=== PATIENT | female | born 1960 | race Caucasian/White ===

== ENCOUNTER 2017-06-05 12:04 | Observation (INO) | payer MEDICAID ==
[2017-06-05] MEDS ORDERED: ONDANSETRON HCL 4 MG/2 ML VIAL ONE (12:48)
[2017-06-05 13:25] LABS: ALBUMIN 4.6 g/dL (3.5-5.0); ALKALINE PHOSPHATASE 88 U/L (38-126); ALT 77 U/L (9-52); AST 132 U/L (14-36); BILIRUBIN, DIRECT 0.3 mg/dL (0.0-0.4); BILIRUBIN, TOTAL 0.6 mg/dL (0.2-1.3); BLOOD UREA NITROGEN 7 mg/dL (7-17); CALCIUM 10.1 mg/dL (8.4-10.2); CHLORIDE 102 mmol/L (98-107); EST GLOMERULAR FILTRATION RATE > 60 mL/min; GLUCOSE 74 mg/dL (70-100); LIPASE 185 U/L (23-300); POTASSIUM 4.1 mmol/L (3.5-5.1); SODIUM 140 mmol/L (137-145); TOTAL PROTEIN 7.4 g/dL (6.3-8.2)
[2017-06-05 13:31] LABS: RED BLOOD COUNT 3.79 X 10^6uL (4.20-6.10)
[2017-06-05 13:32] LABS: BASOPHILS 0.7 % (0.0-2.0); EOSINOPHILS 1.4 % (0.0-6.0); EOSINOPHILS# 0.1 X 10^3uL (0.0-0.4); HEMATOCRIT 42.7 % (36.0-48.0); HEMOGLOBIN 14.3 g/dL (12.0-16.0); LYMPHOCYTES 31.7 % (20.0-40.0); LYMPHOCYTES# 1.3 X 10^3uL (0.8-3.8); MEAN CORPUS. HGB CONCENTRATION 33.6 g/dL (32.0-36.0); MEAN CORPUSCULAR HEMOGLOBIN 37.9 pg (29.0-35.0); MEAN PLATELET VOLUME 7.8 fL (7.4-10.4); MONOCYTES# 0.4 X 10^3uL (0.2-1.0); NEUTROPHILS 55.2 % (54.0-75.0); NEUTROPHILS# 2.2 X 10^3uL (2.6-6.7); PLATELET COUNT 186 X 10^3uL (130-440); RED CELL DISTRIBUTION WIDTH 10.6 % (11.5-14.5)
--- NOTE | 2017-06-05 14:17 | CT REPORT ---
HISTORY: Metastatic breast carcinoma. COMPARISON: 01/24/2017. TECHNIQUE: This examination was performed using automated exposure control, adjustment of mA or kV according to patient size, and/or use of iterative reconstruction technique. Multiple contiguous axial images were obtained from the lung bases through the pubic symphysis following administration of intravenous con trast. 100cc Isovue 370 contrast. FINDINGS: Clear lung bases. Normal heart size. Mild intrahepatic ductal dilatation. This appears similar to the previous study. Subtle poorly define d hypodensities within the posterior segment right lobe of the liver appear grossly stable. No new or enlarging hepatic lesions identified. Normal enhancement hepatic veins and portal veins. Surgical clips gallbladder fossa compatible with previous cholecystectomy. No common bile duct dilata tion or common bile duct stone. Normal spleen. No adrenal masses. No pancreatic mass. Mildly prominent pancreatic duct. Normal renal size and morphology bilaterally. Mildly prominent bilateral renal pelvis unchanged since previous study. No mass, stone or hydronephrosis identified. Mild atherosclerotic changes of aorta and iliac vessels without focal aneurysm. Unremarkable bladder. Uterus is anteverted and slightly to left of midline. There is a possible uteri ne leiomyoma present. This appears unchanged since the previous study. There appears to be trace free fluid within the left adnexal region. Otherwise no discrete adnexal masses noted. Unremarkable stomach, small bowel and colon. No small bowel or colonic obstruction identified. No retroperitoneal lymphadenopathy. No ascites. Evidence for diffuse osseous metastatic disease with involvement of the lower thoracic spine, lumbar spine, pelvis and proximal femurs. This appears to be grossly stable as compared with the previous examination. IMPRESSION: Stable diffuse osseous metastatic disease. Stable mild central intrahepatic ductal dilatation. Stable poorly defined hypodense lesion posterior segment right lobe of the liver. Stable left adnexal mass probably representing pedunculated leiomyoma. Status post cholecystectomy. Final Electronic Signature: This report was electronically signed by Harinder Chambers MD, FACR on 2:15 PM. [facility] / / [facility] [phone]
[2017-06-05] MEDS ORDERED: MORPHINE SULFATE 4 MG/ML SYR ONE (14:30)
[2017-06-05] MEDS ORDERED: HOME MEDICATION LIST NEEDED 1 EA EACH MC ONE (14:51)
--- NOTE | 2017-06-05 15:23 | ER NURSING DOCUMENTATION ---
Nurse's Notes [facility] Name:Imelda Vu Age:56 yrs Sex:Female :1960 Arrival Date:06/05/2017 Time:12:04 Bed3 Private MD:Zack Cuellar Diagnosis:Abdominal Pain, Right Upper Quadrant Presentation: 06/05 12:10 Acuity: LISA 3 tg 12:13 Presenting complaint: Patient states: Right upper quadrant abdominal pain. Transition lp of care: Home. 12:13 Method Of Arrival: Private Vehicle lp Triage Assessment: 12:16 General: Appears uncomfortable, Behavior is. Pain: Complains of pain in right upper lp quadrant. EENT: No deficits noted. Neuro: No deficits noted. Cardiovascular: Heart tones S1 S2. Respiratory: Breath sounds are clear bilaterally. GI: Bowel sounds present X 4 quads. : No deficits noted. Historical: - Allergies: Compazine; - Home Meds: 1. Albuterol Inhl 2. Arimidex 1 mg oral tab 1 tab once daily 3. Nexium 40 mg oral cpDR 1 cap once daily 4. Synthroid 75 mcg oral tab 1 tab once daily 5. Kenalog Topical 6. zoledronic acid 4mg IV 4mg every 3 months - PMHx: breast Cancer; - PSHx: CHOLECYSECTOMY; MASTECTOMY; - Tetanus: < 10 years. - Ebola Screening: : Patient negative for fever greater than or equal to 101.5 degrees Fahrenheit, and additional compatible Ebola Virus Disease symptoms. Patient denies exposure to infectious person. Patient denies travel to an Ebola-affected area in the 21 days before illness onset. . - Immunization history: Pneumococcal vaccine is up to date, Flu Vaccine < 1 year. - Social history: Smoking status: Patient uses tobacco products, current every day smoker. Patient uses alcohol occasionally. Screenin:20 Infectious Disease Risk None. Abuse screen: Denies threats or abuse. Denies injuries lp from another. Nutritional screening: No deficits noted. Assessment: 12:20 GI: Abdomen is tender to palpation in right upper quadrant. lp Vital Signs: 12:19 BP 103 / 74; Pulse 76; Resp 16; Temp 97.0(TE); Pulse Ox 96% on R/A; Weight 50.8 kg; lp Height 5 ft. 2 in. (157.48 cm); Pain 8/10; 13:15 BP 119 / 68; lp 15:20 BP 97 / 60; Pulse 78; Resp 16; Pulse Ox 92% on 2 lpm NC; lp 12:19 Body Mass Index 20.48 (50.80 kg, 157.48 cm) lp ED Course: 12:08 Patient arrived in ED. jl 12:08 Zack Cuellar is Private Physician. jl 12:10 Triage completed. tg 12:13 Fabiana Benitez, RN is Primary Nurse. lp 12:[address] Garcia notified. lp 12:20 Valuables Remains with patient Patient has correct armband on for positive lp identification. Bed in low position. Call light in reach. Side rails up X 1. 12:32 Rufino Garcia MD is Attending Physician. 12:52 Oxygen Oxygen administration via nasal cannula @ 2L/min. tg 14:50 Piedad Mo MD is Admitting Physician. Administered Medications: 12:37 Drug: Zofran 4 mg; Route: IVP; Infused Over: 2 mins; Site: left antecubital; lp 13:07 Follow up: Response: Nausea is decreased lp 12:37 Drug: HYDROmorphone 1 mg; Route: IVP; Site: left antecubital; lp 13:06 Follow up: Response: Pain is decreased lp 13:26 Drug: Dilaudid 0.5 mg; Route: IVP; Site: left antecubital; lp 14:25 Follow up: Response: Pain is decreased lp 13:26 CANCELLED (Other Intervention Used): HYDROmorphone 0.5 mg IVP once lp 14:25 Drug: morphine 4 mg; Route: IVP; Site: left antecubital; lp 15:14 Follow up: Response: No adverse reaction; Pain is decreased lp Outcome: 14:50 Decision to Admit by Provider. jm 15:20 Admitted to Med/surg accompanied by nurse. lp 15:20 Condition: good 15:20 Report given to Arielle OLIVARES 15:20 Instructed on need to admit 15:22 Patient left the ED. lp Signatures: Kendall Boucher, RN MARSHALL Fabiana Benitez, RN RN Rufino Campbell MD MD jm Norman, David dnn Hofsess, Rachel rh Lietz, Jeff jl
--- NOTE | 2017-06-05 15:23 | ER PHYSICIAN DOCUMENTATION ---
Physician Documentation [facility] Name:Imelda Vu Age:56 yrs Sex:Female :1960 Arrival Date:06/05/2017 Time:12:04 Bed3 Private MD:Zack Cuellar ED, John Disposition: 06/05/17 14:50 Admit ordered for MoPiedad godoy. Preliminary diagnosis is Abdominal Pain, Right Upper Quadrant. - Bed requested for Medical/Surgical. - Condition is Fair. - Problem is chronic. - Symptoms are unchanged. 23 HR OBS Yes HPI: 06/05 14:10 This 56 yrs old Female presents to ER via Private Vehicle with complaints of jm Abdominal Pain. 14:10 The patient presents with abdominal pain in the right upper quadrant. Onset: The jm symptoms/episode began/occurred 2 day(s) ago. The symptoms do not radiate. Associated signs and symptoms: Pertinent positives: nausea, vomiting. The symptoms are described as crampy, intermittent, waxing/waning. Modifying factors: the symptoms are aggravated by nothing. Severity of pain: in the emergency department the pain is unchanged. The patient has experienced similar episodes in the past. The patient has not recently seen a physician. 56 yo F w hx of cholecystectomy a few months ago here w RUQ pain that has been chronic but lately, more painful. . Historical: - Allergies: Compazine; - Home Meds: 1. Albuterol Inhl 2. Arimidex 1 mg oral tab 1 tab once daily 3. Nexium 40 mg oral cpDR 1 cap once daily 4. Synthroid 75 mcg oral tab 1 tab once daily 5. Kenalog Topical 6. zoledronic acid 4mg IV 4mg every 3 months - PMHx: breast Cancer; - PSHx: CHOLECYSECTOMY; MASTECTOMY; - Tetanus: < 10 years. - Ebola Screening: : Patient negative for fever greater than or equal to 101.5 degrees Fahrenheit, and additional compatible Ebola Virus Disease symptoms. Patient denies exposure to infectious person. Patient denies travel to an Ebola-affected area in the 21 days before illness onset. . - Immunization history: Pneumococcal vaccine is up to date, Flu Vaccine < 1 year. - Social history: Smoking status: Patient uses tobacco products, current every day smoker. Patient uses alcohol occasionally. ROS: 14:12 Constitutional: Negative for fever. jm 14:12 Cardiovascular: Negative for chest pain. 14:12 Respiratory: Negative for shortness of breath. 14:12 Abdomen/GI: Positive for abdominal pain, nausea, vomiting. Exam: 14:12 Constitutional: The patient appears alert, awake, anxious, obese. 14:12 Eyes: Periorbital structures: appear normal, Conjunctiva: normal. 14:12 ENT: Mouth: is normal, Voice: is normal. 14:12 Neck: Thyroid: appears normal, Trachea: is midline with no obvious abnormalities. 14:12 Cardiovascular: Rate: normal, Rhythm: regular. 14:12 Respiratory: Respirations: normal, Breath sounds: are normal. 14:12 Abdomen/GI: Inspection: abdomen appears normal, Palpation: moderate abdominal tenderness, in the right upper quadrant. 14:12 : CVA tenderness, is absent, Bladder: is normal. 14:12 Neuro: Mentation: is normal, Memory: is normal. 14:12 Psych: Behavior/mood is angry, Affect is calm. Vital Signs: 12:19 BP 103 / 74; Pulse 76; Resp 16; Temp 97.0(TE); Pulse Ox 96% on R/A; Weight 50.8 kg; lp Height 5 ft. 2 in. (157.48 cm); Pain 8/10; 13:15 BP 119 / 68; lp 15:20 BP 97 / 60; Pulse 78; Resp 16; Pulse Ox 92% on 2 lpm NC; lp 12:19 Body Mass Index 20.48 (50.80 kg, 157.48 cm) lp MDM: 12:14 Patient medically screened. 06/05 13:33 Order name: CBC AUTO DIF, MDIF/RMOR IF IND; Complete Time: 13:46 [facility] 06/05 13:44 Order name: BASIC METABOLIC PANEL; Complete Time: 13:46 [facility] 06/05 13:44 Order name: HEPATIC PANEL; Complete Time: 13:46 [facility] 06/05 13:44 Order name: LIPASE; Complete Time: 13:46 [facility] 06/05 17:11 Order name: UA W/ MICRO -CULTURE IF IND; Complete Time: 13:07 [facility] 06/06 06:06 Order name: LACTATE; Complete Time: 13: [facility] 06/06 06:10 Order name: COMPREHENSIVE METABOLIC PANEL; Complete Time: 13: [facility] 06/06 06:17 Order name: CBC WITHOUT A DIFFERENTIAL; Complete Time: 13:07 EDID 06/05 14:18 Order name: CAT SCAN; ABD/PEL W 60773; Complete Time: 14:28 EDID 06/05 12:32 Order name: NPO; Complete Time: 12:38 06/05 12:52 Order name: Oxygen; Complete Time: 12:53 tg Dispensed Medications: 12:37 Drug: Zofran 4 mg; Route: IVP; Infused Over: 2 mins; Site: left antecubital; lp 13:07 Follow up: Response: Nausea is decreased lp 12:37 Drug: HYDROmorphone 1 mg; Route: IVP; Site: left antecubital; lp 13:06 Follow up: Response: Pain is decreased lp 13:26 Drug: Dilaudid 0.5 mg; Route: IVP; Site: left antecubital; lp 14:25 Follow up: Response: Pain is decreased lp 13:26 CANCELLED (Other Intervention Used): HYDROmorphone 0.5 mg IVP once lp 14:25 Drug: morphine 4 mg; Route: IVP; Site: left antecubital; lp 15:14 Follow up: Response: No adverse reaction; Pain is decreased lp Signatures: Kendall Boucher RN RN tg Fabiana Benitez RN RN lp Rufino Garcia MD MD jm Hofsess, Rachel
[2017-06-05] MEDS: NORMAL SALINE 1,000 ML IV SCH (16:08)
[2017-06-05] MEDS ORDERED: KETOROLAC TROMETHAMINE 30 MG/ML VIAL IV PRN (16:44)
[2017-06-05] MEDS ORDERED: MORPHINE SULFATE 2 MG/ML SYR IV PRN (16:45)
[2017-06-05 16:58] LABS: URINE MUCUS NONE SEEN (Up to 25%); URINE RBC NONE SEEN (0-5/hpf); URINE SQUAMOUS EPITHELIAL CELL NONE SEEN (<= 15/hpf); URINE WBC NONE SEEN (0-4/hpf)
[2017-06-05 17:10] LABS: URINE APPEARANCE CLEAR; URINE BACTERIA NONE SEEN (<10/hpf); URINE BILIRUBIN NEGATIVE (NEGATIVE); URINE BLOOD NEGATIVE (NEGATIVE); URINE COLOR YELLOW; URINE GLUCOSE NORMAL (NEGATIVE); URINE KETONE NEGATIVE (NEGATIVE); URINE LEUKOCYTE ESTERASE NEGATIVE (NEGATIVE); URINE NITRITE NEGATIVE (NEGATIVE); URINE PROTEIN NEGATIVE (NEG - TRACE); URINE SPECIFIC GRAVITY < or = 1.005 (0.001-1.035); URINE UROBILINOGEN 0.2mg/dL (Normal) (NEG-1mg/dL)
--- NOTE | 2017-06-05 17:24 | PROGRESS NOTE:General Surgery ---
Assessment and Plan - Date of Encounter Date of Encounter: 06/05/17 (1) Right upper quadrant pain Status: Acute Assessment and plan: Her pain has been present for about 3 weeks he says. It has gradually increased and was too severe today to tolerate any longer. She is also noted reflux with this. She has had very little appetite. She does note that she feels a fast. She has several liver lesions which have been fairly stable over the last few CTs. She denies any vomiting but has been nauseous and has had some dry heaves. She has had some constipation and diarrhea recently as well. I believe the right upper quadrant pain is probably 1 of the liver lesions has become ischemic. She does not have an acute abdomen tonight on examination. She could also have a small bowel obstruction as she has had multiple intra- abdominal surgeries. The plan will be to recheck her labs in the morning and consider an MRCP if her symptoms do not improve. Current Visit: Yes (2) Metastatic breast cancer Status: Acute Assessment and plan: She has been followed on a monthly basis by Dr. Salinas in in [place]. She has been relatively stable despite the fact she has liver metastases and bone metastases. Current Visit: Yes - Time Spent With Patient Total time spent with greater than 50% in coordination of care (as documented) at patient's floor/unit and/or counseling patient: ALEKSEY: Gen Surg PN Subjective Patient reports: afebrile, still having pain, no fever ALEKSEY: Gen Surgery PN Obj Exam - Latest Vital Signs and I&O Latest Vital Signs/I&O: Vital Signs Temp 36.6 C 06/05/17 15:00 Pulse 107 H 06/05/17 15:00 Resp 12 06/05/17 15:43 BP 97/60 06/05/17 15:00 Pulse Ox 96 06/05/17 15:43 Intake & Output 06/04/17 06/05/17 06/05/17 17:59 05:59 17:59 Weight 50.167 kg - Exam General physical exam: moderate pain, chronically ill, cachetic Respiratory exam: normal expansion Abdomen exam: bowel sounds (present), soft, distended - Lab Labs: Laboratory Last Values WBC 4.0 X 10^3uL (3.9-10.7) 06/05/17 12:32 RBC 3.79 X 10^6uL (4.20-6.10) L 06/05/17 12:32 Hgb 14.3 g/dL (12.0-16.0) 06/05/17 12:32 Hct 42.7 % (36.0-48.0) 06/05/17 12:32 MCV 113.0 fL (80.0-100.0) H 06/05/17 12:32 MCH 37.9 pg (29.0-35.0) H 06/05/17 12:32 MCHC 33.6 g/dL (32.0-36.0) 06/05/17 12:32 RDW 10.6 % (11.5-14.5) L D 06/05/17 12:32 Plt Count 186 X 10^3uL (130-440) 06/05/17 12:32 MPV 7.8 fL (7.4-10.4) 06/05/17 12:32 Neutrophils % 55.2 % (54.0-75.0) 06/05/17 12:32 Lymphocytes % 31.7 % (20.0-40.0) 06/05/17 12:32 Eosinophils % 1.4 % (0.0-6.0) 06/05/17 12:32 Basophils % 0.7 % (0.0-2.0) 06/05/17 12:32 Neutrophils # 2.2 X 10^3uL (2.6-6.7) L 06/05/17 12:32 Lymphocytes # 1.3 X 10^3uL (0.8-3.8) 06/05/17 12:32 Monocytes 11.0 % (2.0-10.0) H 06/05/17 12:32 Monocytes # 0.4 X 10^3uL (0.2-1.0) 06/05/17 12:32 Eosinophils # 0.1 X 10^3uL (0.0-0.4) 06/05/17 12:32 Basophils # 0.0 X 10^3uL (0.0-0.1) 06/05/17 12:32 Sodium 140 mmol/L (137-145) 06/05/17 12:32 Potassium 4.1 mmol/L (3.5-5.1) 06/05/17 12:32 Chloride 102 mmol/L (98-107) 06/05/17 12:32 Carbon Dioxide 19 mmol/L (22-30) L 06/05/17 12:32 BUN 7 mg/dL (7-17) D 06/05/17 12:32 Creatinine 0.7 mg/dL (0.5-1.0) 06/05/17 12:32 GFR Calculation > 60 mL/min 06/05/17 12:32 Glucose 74 mg/dL (70-100) 06/05/17 12:32 Calcium 10.1 mg/dL (8.4-10.2) 06/05/17 12:32 Total Bilirubin 0.6 mg/dL (0.2-1.3) 06/05/17 12:32 Direct Bilirubin 0.3 mg/dL (0.0-0.4) 06/05/17 12:32 AST 132 U/L (14-36) H 06/05/17 12:32 ALT 77 U/L (9-52) H 06/05/17 12:32 Alkaline Phosphatase 88 U/L (38-126) 06/05/17 12:32 Total Protein 7.4 g/dL (6.3-8.2) 06/05/17 12:32 Albumin 4.6 g/dL (3.5-5.0) 06/05/17 12:32 Lipase 185 U/L (23-300) 06/05/17 12:32 Urine Color Yellow 06/05/17 16:50 Urine Appearance Clear 06/05/17 16:50 Urine pH 5.0 (5-7) 06/05/17 16:50 Ur Specific [place] < or = 1.005 (0.001-1.035) 06/05/17 16:50 Urine Protein Negative (NEG - TRACE) 06/05/17 16:50 Urine Ketones Negative (NEGATIVE) 06/05/17 16:50 Urine Blood Negative (NEGATIVE) 06/05/17 16:50 Urine Nitrate Negative (NEGATIVE) 06/05/17 16:50 Urine Bilirubin Negative (NEGATIVE) 06/05/17 16:50 Urine Urobilinogen 0.2mg/dl (normal) (NEG-1mg/dL) 06/05/17 16:50 Ur Leukocyte Esterase Negative (NEGATIVE) 06/05/17 16:50 Urine RBC None seen (0-5/hpf) 06/05/17 16:50 Urine WBC None seen (0-4/hpf) 06/05/17 16:50 Ur Squamous Epith Cells None seen (<= 15/hpf) 06/05/17 16:50 Urine Bacteria None seen (<10/hpf) 06/05/17 16:50 Urine Mucus None seen (Up to 25%) 06/05/17 16:50 Urine Glucose Normal (NEGATIVE) 06/05/17 16:50 Quality Questions - VTE Prophylaxis Assessment VTE Present on Admission?: No Patient at risk for venous thromboembolism?: Yes VTE Risk Level: Moderate Risk Pharmaceutical VTE prophylaxis contraindication reason: contraindicated Mechanical VTE prophylaxis contraindication reason: not indicated
--- NOTE | 2017-06-05 18:40 | HISTORY AND PHYSICAL ---
PROVIDER: Date of Admission: 06/05/17 Admitting Provider: KAMARI THAKUR MD Attending Provider: KAMARI THAKUR MD Primary Care Provider: CHIEF COMPLAINT: Patient presented to emergency room with right upper quadrant pain worsening over the last few weeks. HISTORY OF PRESENT ILLNESS: This 56-year-old patient has a known history of metastatic breast cancer.She has noted some right upper quadrant pain for 2 weeks and it became quite excruciating around 11 AM this morning. By afternoon she was in the emergency room and required large doses of narcotic to control her pain.Although it is easy to focus on the fact that she has known metastatic lesions to the liver, it should also be noted that her appetite has been off, and she has had no bowel movement today. She has not noted passing gas either.Her last imaging of the abdomen was several months ago, a CT in [place]. She saw her oncologist about 2 weeks ago, and is on a stable medical regimen. PAST MEDICAL HISTORY: Past medical history includes hypothyroidism, intermittent abdominal pain, intermittent constipation, tobacco abuse PAST SURGICAL HISTORY: Past surgical history cholecystectomy 2016 bilateral mastectomy 2013 SOCIAL HISTORY: Patient smokes cigarettes one half pack per day for over 21 years she drinks alcohol regularly but not to excess. FAMILY HISTORY: Both parents in their 50s of different forms of cancer, details were not pursued at this time. MEDICATIONS: Medications include thyroxine levothyroxine 75 mcg p.o. daily, Arimidex 1 mg p.o. daily, Zometa 4 mg IV q. 3 months ALLERGIES: Allergies prochlorperazine REVIEW OF SYSTEMS: As above VITAL SIGNS: Blood pressure 98/70 pulse 108 afebrile respirations 1294% on 1-2 L of oxygen by nasal cannula PHYSICAL EXAMINATION: On examination Imelda is a pleasant middle-aged lady in no acute distress. She has no adenopathy cardiac exam is unremarkable chest is clear to auscultation the abdomen is soft flat and only point tender at the right costal margin midway across, as if the fingertips are searching for the liver edge. I am unable to elicit tenderness elsewhere. The bowel tones are not completely normal they seem a little hyperactive but normal in tone. Extremities are without edema or rash. Presently she is very comfortable as she just had a dose of pain medication. LABORATORY: Laboratory data remarkable for a normal CBC with a very elevated MCV of 113, chemistries remarkable for LFTs about 3-4 times the normal range, normal UA. IMAGING: CT reading is in the chart with fairly stable findings compared with the past, some mild dilatation of the common bile duct, known metastases that have not changed. Assessment and Plan - Date of Encounter Date of Encounter: 06/05/17 (1) Metastatic breast cancer Status: Chronic Current Visit: Yes (2) Right upper quadrant pain Status: Chronic Assessment and plan: Bowel related (doubt SBO) vs mets in liver as source. Will order MRCP for AM and follow clinically and in terms of labs/imaging to arrive at plan. Current Visit: Yes - Time Spent With Patient Total time spent with greater than 50% in coordination of care (as documented) at patient's floor/unit and/or counseling patient: 16-24 minutes
[2017-06-05] MEDS ORDERED: CALCIUM CARBONATE 300 MG TAB.CHEW PO PRN (18:55)
[2017-06-05] MEDS ORDERED: LORazepam 1 MG TABLET PO PRN (19:01)
[2017-06-05] MEDS ORDERED: CALCIUM CARBONATE 300 MG TAB.CHEW PO ONE (19:07)
[2017-06-05] MEDS: ONDANSETRON ODT 4 MG TAB.RAPDIS PO PRN (19:45)
[2017-06-05] MEDS ORDERED: LEVOTHYROXINE 75 MCG TABLET PO SCH (20:00)
[2017-06-06] MEDS: ONDANSETRON ODT 4 MG TAB.RAPDIS PO PRN (01:49)
[2017-06-06] MEDS: NORMAL SALINE 1,000 ML IV SCH (02:42)
[2017-06-06] MEDS ORDERED: NORMAL SALINE 100 ML IV ONE (02:51)
[2017-06-06 06:02] LABS: A/G RATIO 1.4; ALBUMIN 3.4 g/dL (3.5-5.0); ALKALINE PHOSPHATASE 110 U/L (38-126); ALT 193 U/L (9-52); AST 424 U/L (14-36); BLOOD UREA NITROGEN 7 mg/dL (7-17); CALCIUM 8.1 mg/dL (8.4-10.2); CHLORIDE 107 mmol/L (98-107); EST GLOMERULAR FILTRATION RATE > 60 mL/min; GLUCOSE 64 mg/dL (70-100); SODIUM 140 mmol/L (137-145); TOTAL PROTEIN 5.8 g/dL (6.3-8.2)
[2017-06-06 06:15] LABS: HEMOGLOBIN 12.4 g/dL (12.0-16.0); MEAN CORPUS. HGB CONCENTRATION 33.5 g/dL (32.0-36.0); MEAN CORPUSCULAR HEMOGLOBIN 38.1 pg (29.0-35.0); MEAN PLATELET VOLUME 7.4 fL (7.4-10.4); PLATELET COUNT 154 X 10^3uL (130-440); RED BLOOD COUNT 3.26 X 10^6uL (4.20-6.10); RED CELL DISTRIBUTION WIDTH 10.3 % (11.5-14.5); WHITE BLOOD COUNT 4.2 X 10^3uL (3.9-10.7)
[2017-06-06] MEDS ORDERED: PANTOPRAZOLE 40 MG VIAL IV SCH (06:30)
[2017-06-06] MEDS ORDERED: LEVOTHYROXINE 75 MCG TABLET PO SCH (06:30)
[2017-06-06 06:41] VITALS: RESP 12; O2SAT 97
[2017-06-06] MEDS ORDERED: LORazepam 2 MG/ML INJ IV PRN (08:11)
--- NOTE | 2017-06-06 10:45 | MRI REPORT ---
History: Hepatic metastatic disease. Increasing right upper quadrant pain. History of breast carcinom a. Comparison: CT scans dating from 11/30/2015 through January 24, 2017. Technique: Multiplanar multisequence MRI of the abdomen including a dynamic series of images followin g administration of 20 cc of intravenous Magnevist contrast. MRCP imaging was also obtained. Findings: There is a small amount of free fluid adjacent to the liver, and the left subdiaphragmatic space, and in the pelvis. The gallbladder is absent. No significant intrahepatic or extrahepatic bili dimitris duct dilation. The CBD measures 6 mm no evidence of choledocholithiasis. The pancreatic duct is n ondilated. Coronal T2-weighted images show a 3.6 x 3.4 cm heterogeneous but predominantly T2 hypointense lesion with small internal cystic appearing foci in the left pelvis. This is difficult to evaluate but shows evidence of enhancement. It is uncertain if this is arising from the left ovary or uterus. The lesio n is generally stable in size dating to 09/13/2016. Corresponding to the hypodense lesion shown in the posterior segment of the right hepatic lobe on the previous CT scan is a 2.7 x 2.1 cm mildly T2 hyperintense lesion which enhances following administra tion of intravenous contrast. This lesion is new compared with November 27, 2015 and could be increase d in size compared with January 24, 2017. Best shown on the subtraction imaging are tiny nodular foci o f subcapsular enhancement in the right hepatic lobe overlying which there is evidence of capsular ret raction suggesting that these represent small metastatic deposits. The largest measures on the order of 5 mm. These were not well demonstrated on previous CT imaging. The morphology, signal intensity characteristics, and enhancement of the spleen, pancreas, adrenal gl ands, and kidneys are within normal limits for age. No abnormally enlarged intra-abdominal lymphadeno candelario is identified. There is evidence of diffuse osseous metastatic disease without pathologic fract ure. Impression: 1. Small amount free fluid in the abdomen and pelvis. 2. Cholecystectomy without significant biliary duct dilation. 3. Enhancing nodule in the right hepatic lobe compatible with metastatic disease. 4. Multiple additional tiny nodular foci of enhancement in the right hepatic lobe with overlying caps ular retraction suggesting additional metastatic disease. 5. Left pelvic mass, it is uncertain if this represents a pedunculated uterine fibroid versus a left ovarian mass. 6. Diffuse osseous metastatic disease. Final Electronic Signature: This report was electronically signed by Amarjit Le MD on 06/06/2017 10:43 AM. [facility] / / [facility] [phone]
[2017-06-06 10:48] VITALS: BP 88/56; PULSE 70; TEMP 98.5
--- NOTE | 2017-06-06 13:46 | DC SUMMARY: Gen Surgery Note ---
Discharge Summary: Surg/OB Provider: Date of Admission: 06/05/17 Admitting Provider: KAMARI THAKUR MD Attending Provider: KAMARI THAKUR MD Discharging Provider: SHON HAMILTON MD Primary Care Provider: Discharge Date: 06/06/17 - Diagnosis (1) Right upper quadrant pain Status: Chronic (2) Metastatic breast cancer Status: Chronic Hospital Course: Ms. OLIVA is a 56 year old female Imelda was admitted yesterday with right upper quadrant pain. Was felt that this may be related to her liver metastases. Overnight she had vomiting of a fair amount of material. I thought she may have a bowel obstruction however this did not show up on her MRCP done today. So far she has been able to eat regular food and her pain has been reasonably controlled. Her MRCP shows a liver metastasis in the area of her pain. It appears that this may be distending the capsule which would explain her pain. I discussed her case with her oncologist in [place] and he suggested she get down and see him and they would restage her and figure out a new treatment regimen. We will plan to send her home with some oxycodone and Phenergan. Discharge - Patient/Caregiver Discharge Instructions Activity Level: As tolerated Diet: Regular diet Follow up: [facility] [MD] - 2 Weeks (She will call and make an appointment) Overall discharge status: patient is not back to baseline Disposition: HOME, SELF-CARE Gen Surgery: Discharge Exam - Latest Vital Signs and I&O Latest Vital Signs/I&O: Vital Signs Temp 36.9 C 06/06/17 10:47 Pulse 70 06/06/17 10:47 Resp 12 06/06/17 10:47 BP 88/56 06/06/17 10:47 Pulse Ox 97 06/06/17 10:47 Intake & Output 06/05/17 06/06/17 06/06/17 17:59 05:59 17:59 Intake Total 1850 Output Total 1625 Balance 225 Weight 50.167 kg Intake: IV 1200 Left Antecubital 1200 Oral 650 Output: Urine 625 Emesis 1000 Other: Urine Appearance Clear Urine Color Iraan Voiding Method Toilet Toilet # Voids 2 - Exam General physical exam: chronically ill, cachetic Respiratory exam: normal expansion Abdomen exam: tender (She has mild tenderness in the right upper quadrant. This seems to be when you palpate underneath her ribs. This seems to correspond to the area of the metastases on the MRCP.), bowel sounds ( Hyperactive), soft Discharge Summary Data - Medication History Medication History: Home Medications LORazepam [Ativan*] 1 mg PO HS PRN 09/21/14 Levofloxacin [Levaquin*] 500 mg PO DAILY PRN 06/05/17 Levothyroxine [Synthroid*] 75 mcg PO EVERY MORNING 06/05/17 Ondansetron Odt [Zofran Odt] 4 mg PO PRN PRN 06/05/17 Inpatient Medications 06/05/17 16:44 Ketorolac Tromethamine [Toradol] 30 mg IV Q6H PRN 06/05/17 16:45 Morphine Sulfate 2 mg IV Q2H PRN 06/05/17 18:55 Calcium Carbonate [Tums X-Str] 750 mg PO Q4H PRN 06/05/17 19:01 LORazepam [Ativan] 1 mg PO HS PRN Ondansetron Odt [Zofran Odt] 4 mg PO PRN PRN 06/06/17 06:30 Levothyroxine [Synthroid] 75 mcg PO 0630 Pantoprazole [Protonix IV] 40 mg IV BEFORE BREAKFAST 06/06/17 07:42 proMETHazine HCL [Phenergan Inj] 12.5 mg IM Q6H PRN 06/06/17 08:11 LORazepam [Ativan] 0.5 mg IV Q6H PRN Procedures and tests throughout hospitalization: Completed Lab Orders 06/05/17 16:50 UA W/ MICRO -CULTURE IF IND [URINE] Routine 06/06/17 05:33 CBC WITHOUT A DIFFERENTIAL [HEM] AMDRAW cmp [COMPREHENSIVE METABOLIC PANEL] [CHEM] AMDRAW 06/06/17 05:35 LACTATE [CHEM] Routine Completed Imaging Orders 06/06/17 19:02 MRCP W/WO [MRI] Stat Pending Orders 06/05/17 16:01 Smoking Cessation Teaching by RT [RT] Routine 06/05/17 16:44 Ketorolac Tromethamine [Toradol] 30 mg IV Q6H PRN 06/05/17 16:45 Morphine Sulfate 2 mg IV Q2H PRN 06/05/17 18:55 Calcium Carbonate [Tums X-Str] 750 mg PO Q4H PRN 06/05/17 19:01 LORazepam [Ativan] 1 mg PO HS PRN Ondansetron Odt [Zofran Odt] 4 mg PO PRN PRN 06/06/17 06:30 Levothyroxine [Synthroid] 75 mcg PO 0630 Pantoprazole [Protonix IV] 40 mg IV BEFORE BREAKFAST 06/06/17 07:42 proMETHazine HCL [Phenergan Inj] 12.5 mg IM Q6H PRN 06/06/17 08:11 LORazepam [Ativan] 0.5 mg IV Q6H PRN Labs on day of discharge: Labs from last 24 hours 06/06/17 06/06/17 06/05/17 05:35 05:33 16:50 WBC 4.2 RBC 3.26 L Hgb 12.4 Hct 37.0 MCV 114.0 H MCH 38.1 H MCHC 33.5 RDW 10.3 L Plt Count 154 MPV 7.4 Sodium 140 Potassium 4.0 Chloride 107 Carbon Dioxide 24 BUN 7 Creatinine 0.7 GFR Calculation > 60 Glucose 64 L Lactic Acid < 0.5 L Cancelled Calcium 8.1 L Total Bilirubin 1.0 D AST 424 H ALT 193 H Alkaline Phosphatase 110 Total Protein 5.8 L D Albumin 3.4 L D Albumin/Globulin Ratio 1.4 Urine Color Yellow Urine Appearance Clear Urine pH 5.0 Ur Specific [place] < or = 1.005 Urine Protein Negative Urine Ketones Negative Urine Blood Negative Urine Nitrate Negative Urine Bilirubin Negative Urine Urobilinogen 0.2mg/dl (normal) Ur Leukocyte Esterase Negative Urine RBC None seen Urine WBC None seen Ur Squamous Epith Cells None seen Urine Bacteria None seen Urine Mucus None seen Urine Glucose Normal
== END 2017-06-06 13:15 | disposition home or self-care (01) ==
LOC: ER 12:04 → IN 15:08
PROVIDERS: ADMIT Family Medicine; ATTEND Family Medicine
DX: R10.11 Right upper quadrant pain (principal); C50.919 Malignant neoplasm of unspecified site of unspecified female breast; C78.7 Secondary malignant neoplasm of liver and intrahepatic bile duct; C79.52 Secondary malignant neoplasm of bone marrow; Z72.0 Tobacco use; E03.9 Hypothyroidism, unspecified; Z79.899 Other long term (current) drug therapy
CPT/HCPCS: 36415; 74177; 74183; 80048; 80053; 80076; 81001; 83605; 83690; 85025; 85027; 96361; 96374; 96375; 96376; 99285; G0378; J1170; J1885; J2060; J2270; J2405; J2550; J7030